=== PATIENT | female | born 1975 | race African-American/Black ===

== ENCOUNTER 2017-01-26 14:42 | Emergency (ER) | payer MEDICAID ==
[~2017-01-26] VITALS: Ht 170.2 cm; Wt 115.2 kg
[2017-01-26 15:02] VITALS: BP 130/79
[2017-01-26] MEDS ORDERED: Methocarbamol 750mg tab ORAL ONE (15:30)
--- NOTE | 2017-01-26 16:31 | Diagnostic Imaging Report ---
Indication: Neck Pain Findings: 3 views of the cervical spine were obtained. There is no acute fracture identified. Alignment is normal. The open-mouth odontoid view shows an intact dens and good alignment of the lateral masses with respect to the body of C2. Minimal endplate spurring demonstrated at C4-5 and C5-6 with calcification of the anterior margin of the annulus fibrosis. There is no soft tissue swelling. Impression: No acute injury. Mild degenerative changes at C4-5 and C5-6
--- NOTE | 2017-01-26 16:46 | Diagnostic Imaging Report ---
Indication: Pain Findings: 3 views of the right wrist were obtained. No acute fractures, malalignment, erosions or periostitis are identified. Bone mineralization is within normal limits. Soft tissues are unremarkable. Impression: Negative examination of the right wrist.
[2017-01-26] MEDS ORDERED: ROBAXIN-750750 MG PO (16:56)
[2017-01-26] MEDS ORDERED: IBUPROFEN600 MG ORAL (16:56)
[2017-01-26 17:09] VITALS: BP 138/90
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
== END 2017-01-26 17:09 | disposition home or self-care (01) ==
LOC: EMR 15:26
DX: S16.1XXA Strain of muscle, fascia and tendon at neck level, initial encounter (principal); S63.501A Unspecified sprain of right wrist, initial encounter; V49.9XXA Car occupant (driver) (passenger) injured in unspecified traffic accident, initial encounter; Y93.9 Activity, unspecified; Y92.410 Unspecified street and highway as the place of occurrence of the external cause; Z88.0 Allergy status to penicillin
CPT/HCPCS: 29260; 72040; 99284